=== PATIENT | female | born 1955 | race Caucasian/White ===

== ENCOUNTER 2016-06-30 14:29 | Outpatient (CLI) | payer OTHER ==
--- NOTE | 2016-06-30 16:29 | RAD ---
FRONTAL AND LATERAL IMAGING OF THE THORACIC SPINE: Date: 06-30-16 Comparison: None. History: Upper back pain with burning and stinging. FINDINGS: Incompletely visualized cervical spine hardware is present. Thoracic pedicles appear intact on the frontal exam. Thoracic vertebral body height and alignment appears within normal limits. There is minimal mid thoracic spine degenerative change, stable. No acute osseous abnormality is noted. IMPRESSION: No radiographic evidence of acute thoracic spine fracture. POS: [facility]
== END 2016-06-30 14:30 | disposition home or self-care (01) ==
LOC: MADRAD 14:29
PROVIDERS: ATTEND Family Medicine
DX: M54.6 Pain in thoracic spine (principal)
CPT/HCPCS: 72072

== ENCOUNTER 2016-07-09 16:20 | Outpatient (CLI) | payer OTHER ==
[2016-07-11 16:47] LABS: Chlamydia by PCR Not Detected (NotDetected); GC by PCR Not Detected (NotDetected)
== END 2016-07-09 16:21 | disposition home or self-care (01) ==
LOC: MADLABBHPM 16:20
PROVIDERS: ATTEND Family Medicine
DX: N89.8 Other specified noninflammatory disorders of vagina (principal)
CPT/HCPCS: 87480; 87491; 87510; 87591; 87660

== ENCOUNTER 2016-11-23 09:47 | Outpatient (CLI) | payer OTHER ==
[2016-11-23 10:22] LABS: #Basophils 0.1 thou/uL (0.0-0.2); #Eosinphils 0.1 thou/uL (0.0-0.7); #Monocytes 0.6 thou/uL (0.11-0.59); #Neutrophils 5.7 thou/uL (1.40-6.50); %Basophils 1.1 % (0.0-1.0); %Eosinophils 0.7 % (0.0-10.0); %Lymphocytes 31.8 % (21.0-51.0); %Monocytes 6.7 % (0.0-10.0); %Neutrophils 59.7 % (42.0-75.0); Hemoglobin 15.3 g/dL (12.0-16.0); Mean Corpuscular HGB CONC 32.8 g/dL (32.0-36.0); Mean Corpuscular Hemoglobin 31.1 pg (27.0-31.0); Mean Corpuscular Volume 94.8 fl (81.0-99.0); Mean Platelet Volume 8.6 fL (7.4-10.4); Platelet Count 159 thou/uL (130-400); RBC Distribution Width 11.7 % (11.5-14.5); Red Blood Cell (RBC) Count 4.91 mill/uL (4.20-5.40); White Blood Cell (WBC) Count 9.5 thou/uL (4.8-10.8)
[2016-11-23 10:35] LABS: ALT (SGPT) 15 U/L (8-55); AST (SGOT) 19 U/L (5-34); Albumin 4.3 g/dL (3.5-5.0); Alkaline Phosphatase 88 U/L (40-150); Anion Gap 16 mmol/L (10-20); BUN (Urea Nitrogen) 12 mg/dL (9.8-20.1); Bilirubin, Total 0.5 mg/dL (0.2-1.2); Calc. Creatinine Clearance 0 mL/min (70-130); Calcium 9.4 mg/dL (7.8-10.44); Carbon Dioxide 25 mmol/L (22-29); Chloride 103 mmol/L (98-107); Cholesterol 179 mg/dl (< 200 Desired); Estimated GFR-MDRD 80; Globulin 3.5 g/dL (2.4-3.5); Glucose 87 mg/dL (70-105); HDL Cholesterol 45 mg/dL (>60 Neg Risk); LDL Cholesterol, Calculated 104 mg/dL; Potassium 3.5 mmol/L (3.5-5.1); Protein, Total 7.8 g/dL (6.0-8.3); Sodium 140 mmol/L (136-145); Triglycerides 151 mg/dL (Less than 150)
[2016-11-23 10:57] LABS: Thyroid Stimulating Hormone 1.4008 uIU/mL (0.35-4.94)
[2016-11-23 12:24] LABS: Vitamin D, 25 Hydroxy 32.6 ng/ml (> 30.0)
[2016-11-23 14:18] LABS: Bacteria/HPF None Seen HPF (None Seen); Bilirubin Negative (Negative); Blood, Urine Negative (Negative); Clarity Clear (Clear); Glucose, Urine (Dipstick) Negative (Negative); Leukocyte Negative (Negative); Nitrite Negative (Negative); Protein, Urine (Dipstick) Negative (Neg-Trace); RBC/HPF None Seen HPF (0-3); Specific Gravity, Urine 1.015 (1.005-1.030); Squamous Epithelial 0-3 HPF (0-3); Urobilinogen 0.2 mg/dL (0.2-1.0); WBC/HPF None Seen HPF (0-3); pH, Urine 6.5 (5.0-9.0)
== END 2016-11-23 09:48 | disposition home or self-care (01) ==
LOC: MADLABBHPM 09:47
PROVIDERS: ATTEND Family Medicine
DX: Z00.00 Encounter for general adult medical examination without abnormal findings (principal)
CPT/HCPCS: 80053; 80061; 81001; 82306; 82607; 83036; 84443; 85025

== ENCOUNTER 2016-11-29 13:19 | Outpatient (CLI) | payer OTHER | END 2016-11-29 13:20 | disposition home or self-care (01) | LOC: MADLABBHPM 13:19 | PROVIDERS: ATTEND Family Medicine | DX: Z00.00 Encounter for general adult medical examination without abnormal findings (principal) | CPT/HCPCS: 36415; 82607 ==

== ENCOUNTER 2016-12-09 13:59 | Outpatient (CLI) | payer OTHER ==
--- NOTE | 2016-12-09 16:07 | RAD ---
TWO VIEW CHEST: COMPARISON: 10/19/16. INDICATION: Costochondral chest pain. FINDINGS: There is no evidence of lobar consolidation, effusion, or pneumothorax. Cardiac silhouette is withi n normal limits of size. No significant interval change when compared to 10/19/16 exam. IMPRESSION: No focal consolidation. POS: [facility]
== END 2016-12-09 14:00 | disposition home or self-care (01) ==
LOC: MADRAD 13:59
PROVIDERS: ATTEND Family Medicine
DX: R07.1 Chest pain on breathing (principal)
CPT/HCPCS: 71020

== ENCOUNTER 2017-06-22 09:45 | Outpatient (CLI) | payer OTHER | END 2017-06-22 09:46 | disposition home or self-care (01) | LOC: MADLABBHPM 09:45 | PROVIDERS: ATTEND Family Medicine | DX: R30.0 Dysuria (principal) | CPT/HCPCS: 36415; 87077; 87086; 87186 ==

== ENCOUNTER 2017-10-05 08:44 | Outpatient (CLI) | payer OTHER ==
--- NOTE | 2017-10-05 11:38 | ULT ---
THYROID ULTRASOUND: HISTORY: History of bilateral nodules on prior CT scan dated 10/01/17. History of weight loss. FINDINGS: The right lobe measures 4.4 x 1.8 x 1.4 cm. The left lobe measures 4.1 x 1.4 x 1.2 cm. Isthmus is 0.2 cm. In the right lobe superiorly, there is a 0.4 x 0.5 x 0.7 cm diameter cyst with a small echogenic focus with a comet-tail artifact consistent with benign colloid cyst. No other signi ficant nodule is noted. IMPRESSION: Benign cyst in the right lobe of the thyroid. No other significant abnormality. No abnormal solid n odule. POS: [facility]
== END 2017-10-05 08:45 | disposition home or self-care (01) ==
LOC: MADULT 08:44
PROVIDERS: ATTEND Family Medicine
DX: E04.1 Nontoxic single thyroid nodule (principal)
CPT/HCPCS: 76536

== ENCOUNTER 2017-11-23 16:01 | Outpatient (CLI) | payer OTHER ==
--- NOTE | 2017-11-23 16:42 | RAD ---
TWO VIEWS OF THE CHEST: 11/23/17 COMPARISON: 12/09/16. HISTORY: Shortness of breath. FINDINGS: Two views of the chest show normal sized cardiomediastinal silhouette. There is no evidence of consol idation, mass, or pleural effusion. Hardware seen in the cervical spine. IMPRESSION: No evidence of acute cardiopulmonary disease. POS: [facility]
--- NOTE | 2017-11-23 16:44 | RAD ---
TWO VIEWS RIGHT RIBS: 11/23/17 HISTORY: Right rib pain. AP and oblique views right ribs obtained. Images demonstrate fractures involving the right fourth, fifth, sixth, seventh and eighth ribs. No evidence of right sided pneumothorax seen. IMPRESSION: Right fourth through eighth rib fractures. POS: [facility]
[2017-11-23 16:53] LABS: ALT (SGPT) 10 U/L (8-55); AST (SGOT) 14 U/L (5-34); Albumin 4.3 g/dL (3.4-4.8); Alkaline Phosphatase 89 U/L (40-150); Anion Gap 16 mmol/L (10-20); BUN (Urea Nitrogen) 14 mg/dL (9.8-20.1); Bilirubin, Total 0.3 mg/dL (0.2-1.2); Calc. Creatinine Clearance 0 mL/min (70-130); Calcium 9.3 mg/dL (7.8-10.44); Carbon Dioxide 25 mmol/L (23-31); Chloride 105 mmol/L (98-107); Estimated GFR-MDRD 73; Glucose 94 mg/dL (80-115); Potassium 4.4 mmol/L (3.5-5.1); Protein, Total 7.3 g/dL (6.0-8.3); Sodium 142 mmol/L (136-145)
== END 2017-11-23 16:02 | disposition home or self-care (01) ==
LOC: MADLAB 16:01
PROVIDERS: ATTEND Family Medicine
DX: R06.02 Shortness of breath (principal); R10.9 Unspecified abdominal pain; R14.0 Abdominal distension (gaseous); S22.41XA Multiple fractures of ribs, right side, initial encounter for closed fracture
CPT/HCPCS: 36415; 71046; 80053

== ENCOUNTER 2018-01-12 16:04 | Emergency (ER) | payer OTHER | END 2018-01-12 16:25 | disposition home or self-care (01) | LOC: MADERS 16:04 | DX: R07.81 Pleurodynia (principal); K21.9 Gastro-esophageal reflux disease without esophagitis; J44.9 Chronic obstructive pulmonary disease, unspecified; F41.9 Anxiety disorder, unspecified; F17.210 Nicotine dependence, cigarettes, uncomplicated; Z79.899 Other long term (current) drug therapy | CPT/HCPCS: 99283 ==

== ENCOUNTER 2018-03-08 14:44 | Outpatient (CLI) | payer OTHER ==
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
== END 2018-03-08 14:45 | disposition home or self-care (01) ==
LOC: MADRAD 14:44
PROVIDERS: ATTEND Family Medicine
DX: R07.81 Pleurodynia (principal); S22.41XA Multiple fractures of ribs, right side, initial encounter for closed fracture

== ENCOUNTER 2018-07-12 19:09 | Emergency (ER) | payer OTHER ==
--- NOTE | 2018-07-12 21:41 | RAD ---
CHEST ONE VIEW RIGHT RIBS THREE VIEWS 07/12/18 COMPARISON: 03/08/18. HISTORY: Fall two weeks ago. Pain. FINDINGS: ONE VIEW CHEST: Normal Cardiac silhouette. Pulmonary vessels and hilum are normal. Costophrenic angles are clear. No masses or consolidation. Chronic changes in the lung apices. No pneumothorax or acute osseous abnorm alities. Cervical fusion hardware is noted. RIGHT RIBS: No fracture. No cortical irregularity or periosteal reaction. There does appear to be chronic irregul arity involving the anterior right fourth rib, similar to the previous examination. IMPRESSION: 1. No acute cardiopulmonary process. 2. No acute rib fracture. POS: [facility]
== END 2018-07-12 21:50 | disposition home or self-care (01) ==
LOC: MADERS 19:09
DX: R07.81 Pleurodynia (principal)

== ENCOUNTER 2018-08-06 12:11 | Emergency (ER) | payer OTHER ==
--- NOTE | 2018-08-06 13:52 | RAD ---
PA AND LATERAL CHEST: Date: 08/06/18 HISTORY: Injury, chest pain. FINDINGS: Heart size is within normal limits. Mediastinal structures appear unremarkable. Lungs are clear of in filtrates. Postoperative changes of the right shoulder are present. IMPRESSION: No active intrathoracic disease. POS: [facility]
== END 2018-08-06 14:25 | disposition home or self-care (01) ==
LOC: MADERS 12:11
DX: S29.011A Strain of muscle and tendon of front wall of thorax, initial encounter (principal); K21.9 Gastro-esophageal reflux disease without esophagitis; G43.909 Migraine, unspecified, not intractable, without status migrainosus; F17.210 Nicotine dependence, cigarettes, uncomplicated; X58.XXXA Exposure to other specified factors, initial encounter; Z79.899 Other long term (current) drug therapy
CPT/HCPCS: 71046; 93005

== ENCOUNTER 2018-09-20 10:20 | Outpatient (CLI) | payer OTHER ==
--- NOTE | 2018-09-20 10:35 | RAD ---
EXAM: 4 views of the right knee HISTORY: Knee pain COMPARISON: None FINDINGS: No knee effusion is seen. There is no evidence of acute fracture or dislocation. No signifi cant degenerative changes are seen. No soft tissue swelling is present. IMPRESSION: No evidence of acute osseous abnormality.
== END 2018-09-20 10:21 | disposition home or self-care (01) ==
LOC: MADRAD 10:20
PROVIDERS: ATTEND Family Medicine
DX: M25.561 Pain in right knee (principal)

== ENCOUNTER 2018-11-03 15:05 | Outpatient (CLI) | payer OTHER ==
--- NOTE | 2018-11-03 15:29 | RAD ---
XR Chest Pa Lat STANDARD HISTORY: Shortness of breath COMPARISON: 11/01/2018 FINDINGS: The heart size is normal. The lungs are well expanded without focal areas of consolidation, pneumothorax or pleural effusions. There are degenerative changes in the spine. Postop changes in the lower cervical spine are again seen. IMPRESSION: No radiographic evidence of acute cardiopulmonary process.
--- NOTE | 2018-11-03 15:33 | RAD ---
ABDOMEN ONE VIEW: HISTORY: Abdominal swelling FINDINGS: There is fecal material in the colon. The bowel gas pattern is unremarkable. No suspicious calcifications are seen.
--- NOTE | 2018-11-03 15:48 | RAD ---
RADIOGRAPH RIGHT RIBS TWO VIEWS: 11/03/18 HISTORY: 63-year-old female with right rib pain. COMPARISON: 01/13/18. FINDINGS: Again noted are the old anterolateral right rib fractures on the oblique view. On the AP view, there is significant motion artifact making this a limited study. No grossly displaced acute fracture is vi sualized. No pneumothorax. IMPRESSION: 1. Limited study. 2. Old right rib fractures. POS: [facility]
== END 2018-11-03 15:06 | disposition home or self-care (01) ==
LOC: MADRAD 15:05
PROVIDERS: ATTEND Family Medicine
DX: R19.00 Intra-abdominal and pelvic swelling, mass and lump, unspecified site (principal); R07.81 Pleurodynia; R06.02 Shortness of breath; Z87.81 Personal history of (healed) traumatic fracture
CPT/HCPCS: 71046; 74018

== ENCOUNTER 2019-02-15 09:04 | Outpatient (CLI) | payer OTHER ==
--- NOTE | 2019-02-15 09:30 | RAD ---
XR Hip Rt 2-3 View: 02/15/2019 9:16 AM CLINICAL INDICATION: Right hip pain COMPARISON: None. FINDINGS: Fracture:No fracture. Arthropathy:Mild scattered degenerative change Incidental findings:None of significance. IMPRESSION: No acute osseous abnormality.
--- NOTE | 2019-02-15 11:31 | ULT ---
THYROID ULTRASOUND: HISTORY: Patient with a history of a thyroid nodule. COMPARISON: Exam from 10/05/2017. TECHNIQUE: Real-time imaging of the right and left lobes of the gland was performed. FINDINGS: The right lobe measures 1.1 x 1.6 x 4.6 cm and the left lobe 1.3 x 1.2 x 3.4 cm. A small, 4 mm, hypoe choic nodule is seen within the right lobe. This appears to represent a small cyst and appears simila r to the previous exam. IMPRESSION: Small benign appearing right lobe thyroid cyst. POS: [facility]
== END 2019-02-15 09:05 | disposition home or self-care (01) ==
LOC: MADRAD 09:04
PROVIDERS: ATTEND Family Medicine
DX: M25.551 Pain in right hip (principal); E04.1 Nontoxic single thyroid nodule
CPT/HCPCS: 76536

== ENCOUNTER 2019-03-15 14:55 | Emergency (ER) | payer OTHER ==
[2019-03-15] MEDS ORDERED: HYDROcodone/Acetaminophen 5/325 mg Tablet ONE (16:23)
--- NOTE | 2019-03-15 16:24 | RAD ---
Exam:3 views left hand HISTORY: fall. Pain FINDINGS: Obliquely oriented fracture involving the fifth metacarpal. Minimal displacement. Additiona l fractures are not appreciated. IMPRESSION: Fifth metacarpal fracture.
--- NOTE | 2019-03-15 16:34 | RAD ---
TWO VIEW CHEST: INDICATIONS: Right sided chest pain. COMPARISON: 11/03/2018 FINDINGS: No focal consolidation or effusion. No significant pneumothorax is visualized. Stable mild biapical p leural irregularity. Mild lateral right rib irregularity is present, incompletely assessed on this ex am. IMPRESSION: 1. No focal consolidation or discrete pneumothorax of significance. 2. Mild irregularity involving the lateral mid right ribs. Correlate clinically. If there is focal pa in in this region consider followup with dedicated right rib series to further evaluate. POS: [facility]
== END 2019-03-15 17:00 | disposition home or self-care (01) ==
LOC: MADERS 14:55
DX: S62.307A Unspecified fracture of fifth metacarpal bone, left hand, initial encounter for closed fracture (principal); K21.9 Gastro-esophageal reflux disease without esophagitis; G43.909 Migraine, unspecified, not intractable, without status migrainosus; F17.210 Nicotine dependence, cigarettes, uncomplicated; Z79.899 Other long term (current) drug therapy; Z79.891 Long term (current) use of opiate analgesic; W18.30XA Fall on same level, unspecified, initial encounter
CPT/HCPCS: 71046

== ENCOUNTER 2019-06-20 14:14 | Outpatient (CLI) | payer OTHER ==
--- NOTE | 2019-06-20 14:50 | RAD ---
EXAM: XR Ribs Rt>=2 view STANDARD PROVIDED CLINICAL HISTORY: Right-sided chest pain after fall. COMPARISON: Chest x-ray on 03/15/2019 FINDINGS: Again noted are remote right posterolateral rib fractures involving the right sixth and seventh ribs. No additional rib fracture is seen. No pneumothorax or pleural effusion is identified on the right. There are increased interstitial densities seen in the right upper lung zone and partially vis ualized in the left upper lung zone which are similar to prior chest x-ray and likely related to chronic lung changes. Postsurgical changes lower cervical spine and right shoulder are again seen. No other interval change. IMPRESSION: 1. Remote right sixth and seventh rib fractures. No acute rib fracture is seen on this exam. There is no pneumothorax. 2. Mild chronic lung changes.
== END 2019-06-20 14:15 | disposition home or self-care (01) ==
LOC: MADRAD 14:14
PROVIDERS: ATTEND Psychiatry & Neurology Neurology
DX: G24.3 Spasmodic torticollis (principal)

== ENCOUNTER 2019-08-14 08:10 | Outpatient (CLI) | payer OTHER ==
[2019-08-14 08:28] LABS: Bilirubin Negative (Negative); Blood, Urine Negative (Negative); Clarity Clear (Clear); Glucose, Urine (Dipstick) Negative (Negative); Leukocyte Negative (Negative); Nitrite Negative (Negative); Protein, Urine (Dipstick) Negative (Neg-Trace); Urobilinogen 0.2 mg/dL (Less than 2)
[2019-08-14 08:45] LABS: Bacteria/HPF Rare-Few HPF (None Seen); RBC/HPF 0-3 HPF (0-3); Squamous Epithelial 0-3 HPF (0-3); WBC/HPF 0-3 HPF (0-3)
[2019-08-14 08:46] LABS: Calcium Oxalate Crystals 1+ HPF (None Seen)
== END 2019-08-14 08:11 | disposition home or self-care (01) ==
LOC: MADLABBHPM 08:10
PROVIDERS: ATTEND Family Medicine
DX: R30.0 Dysuria (principal)
CPT/HCPCS: 81001; 87086

== ENCOUNTER 2019-09-04 19:06 | Emergency (ER) | payer OTHER ==
--- NOTE | 2019-09-04 20:19 | CT ---
CT CHEST WITHOUT CONTRAST: 09/04/19 INDICATION: Fall with injury. Right chest pain. FINDINGS: The lungs appear clear of infiltrate. There is some linear atelectatic changes in the left upper lobe and there is mild bilateral apical pleural thickening. No effusion or pneumothorax. No evidence of acute rib fracture. Old healed fractures involving the right sixth and seventh ribs ar e noted. Mediastinum unremarkable. Images through upper abdomen unremarkable. The thoracic vertebrae maintain normal height and alignment with mild to moderate degenerative changes. Evidence of prior anterior fu tre procedure in the cervical spine. IMPRESSION: 1. Linear atelectasis in the left upper lobe and bilateral apical pleural thickening. 2. No acute process. POS: [facility]
== END 2019-09-04 20:41 | disposition home or self-care (01) ==
LOC: MADERS 19:06
DX: S20.211A Contusion of right front wall of thorax, initial encounter (principal); M54.16 Radiculopathy, lumbar region; K21.9 Gastro-esophageal reflux disease without esophagitis; G43.909 Migraine, unspecified, not intractable, without status migrainosus; F17.210 Nicotine dependence, cigarettes, uncomplicated; Z79.891 Long term (current) use of opiate analgesic; Z79.899 Other long term (current) drug therapy; W19.XXXA Unspecified fall, initial encounter
CPT/HCPCS: 71250

== ENCOUNTER 2019-10-18 09:25 | Outpatient (CLI) | payer OTHER ==
--- NOTE | 2019-10-18 09:45 | RAD ---
Right ankle 3 views HISTORY: Injury. FINDINGS: Ankle mortise and talar dome are intact. Very mild osteophytosis. No acute fracture, dislocation, or aggressive osseous erosions. IMPRESSION : No acute osseous abnormalities are demonstrated.
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
== END 2019-10-18 09:26 | disposition home or self-care (01) ==
LOC: MADLAB 09:25
PROVIDERS: ATTEND Family Medicine
DX: M79.661 Pain in right lower leg (principal)

== ENCOUNTER 2020-01-27 10:54 | Emergency (ER) | payer OTHER ==
[2020-01-27] MEDS ORDERED: Tetracaine 0.5% PF 4 ML BOT ONE (11:16)
[2020-01-27] MEDS ORDERED: Fluorescein Opthalmic Strip ONE (11:16)
[2020-01-27] MEDS ORDERED: Boostrix 0.5 ML (Tdap) VIAL ONE (11:43)
== END 2020-01-27 11:50 | disposition home or self-care (01) ==
LOC: MADERS 10:54
DX: S05.02XA Injury of conjunctiva and corneal abrasion without foreign body, left eye, initial encounter (principal); M54.16 Radiculopathy, lumbar region; K21.9 Gastro-esophageal reflux disease without esophagitis; G43.909 Migraine, unspecified, not intractable, without status migrainosus; F17.210 Nicotine dependence, cigarettes, uncomplicated; Z79.891 Long term (current) use of opiate analgesic; Z79.899 Other long term (current) drug therapy; W22.8XXA Striking against or struck by other objects, initial encounter
CPT/HCPCS: 90471; 90715